=== PATIENT | female | born 1985 ===

== ENCOUNTER → 2023-12-12 | Outpatient (CLI) | payer OTHER ==
--- NOTE | 2024-01-02 15:10 | MR ---
EXAMINATION TYPE: MR knee RT wo con DATE OF EXAM: 01/01/2024 COMPARISON: None HISTORY: 38-year-old female pain, internal derangement TECHNIQUE: Multiplanar, multisequence imaging of the right knee is performed without IV contrast. FINDINGS: ACL, PCL, MCL, and LCL complex are intact. There is a small inner margin tear along the posterior horn of the medial meniscus. Larger oblique te ar involving the body of the medial meniscus. There is appearance of a moderate multilocular ganglion cyst tracking down from the anterior aspect of the anterior horn down the anterior tibial epiphysis measuring 9 mm wide and 2.2 cm craniocaudal. Overall medial compartment articular cartilage volume is maintained. The lateral meniscus is intact and overall lateral compartment articular cartilage volume is maintain ed. The patellofemoral compartment articular cartilage volume is maintained. Generalized subcutaneous soft tissue edema. Trace physiologic joint fluid. There is a trace leaking B dillan's cyst. Bilocular ganglion cyst measuring 2.2 x 1.9 x 0.6 cm overlying the medial aspect of the knee superfic ial to the pes anserinus Normal artery anatomy and muscle bulk. Extensor mechanism is intact. Patchy red marrow hyperplasia is noted. No suspicious bone marrow replacement. IMPRESSION: 1. Small inner margin radial tear posterior horn of the medial meniscus. Large oblique tear of the me dial meniscal body. 2. A 2.2 cm bilocular ganglion cyst overlying the medial aspect of the knee, just superficial to the pes anserinus. In addition, there is a second, elongated multilocular ganglion cyst measuring up to 2.2 cm long tracking up from the past and Denise's insertion and along the anteromedial lip of the ti bial plateau. Findings suggest underlying insertional tendinopathy and/or partial tear. 3. Generalized subcutaneous soft tissue swelling. Some leaking fluid from the expected location of a Irby's cyst.
== END | disposition home or self-care (01) ==
LOC: RADMRIMAIN 08:02
PROVIDERS: ATTEND Orthopaedic Surgery
DX: M23.8X1 Other internal derangements of right knee (principal); M25.361 Other instability, right knee; M23.611 Other spontaneous disruption of anterior cruciate ligament of right knee; S83.241A Other tear of medial meniscus, current injury, right knee, initial encounter; M67.461 Ganglion, right knee